=== PATIENT | female | born 1970 | race Caucasian/White ===

== ENCOUNTER → 2017-02-02 | Outpatient (CLI) | payer OTHER | LOC: EMI 10:41 | DX: M50.90 Cervical disc disorder, unspecified, unspecified cervical region (principal); M54.2 Cervicalgia; G89.4 Chronic pain syndrome; M50.222 Other cervical disc displacement at C5-C6 level | CPT/HCPCS: 72156; A9577; J7050 ==

== ENCOUNTER → 2017-02-02 | Outpatient (CLI) | payer OTHER | LOC: LAB 10:05 | DX: M35.9 Systemic involvement of connective tissue, unspecified (principal); Z84.1 Family history of disorders of kidney and ureter; Z87.442 Personal history of urinary calculi | CPT/HCPCS: 36415; 82565; 84520 ==

== ENCOUNTER → 2021-03-04 | Outpatient (CLI) | payer OTHER | LOC: EMI 13:38 | DX: G35 Multiple sclerosis (principal) | CPT/HCPCS: 70553; A9577 ==

== ENCOUNTER → 2021-09-16 | Outpatient (CLI) | payer OTHER | LOC: EMI 11:26 | DX: G35 Multiple sclerosis (principal); R90.82 White matter disease, unspecified | CPT/HCPCS: 70553; A9577 ==

== ENCOUNTER → 2021-10-29 | Outpatient (CLI) | payer OTHER ==
[2021-10-29 10:11] LABS: GLUCOSE,CSF 56 mg/dL (50-80); TOTAL PROTEIN,CSF 40 mg/dL (20-45)
[2021-10-29 10:51] LABS: WBC (AUTOMATED 1 10^3 (0-5)
[2021-10-29 10:52] LABS: WBC (AUTOMATED 1 10^3 (0-5)
[2021-11-01 14:13] LABS: CSF IGG INDEX 0.4 (0.0-0.7); IMMUNOGLOBULIN G, QN, SERUM 966 mg/dL (586-1602)
[2021-11-01 17:13] LABS: MYELIN BASIC PROTEIN, CSF 6.7 ng/mL (0.0-3.7)
== END ==
LOC: OR 07:30 → RAD 08:22
PROVIDERS: Nurse Practitioner Family
DX: G35 Multiple sclerosis (principal)
CPT/HCPCS: 82040; 82784; 82945; 83873; 83916; 84157; 87015; 87070; 87116; 87205; 87210; 89051

== ENCOUNTER → 2021-12-10 | Outpatient (CLI) | payer OTHER | LOC: OPSV 14:06 | DX: G35 Multiple sclerosis (principal) | CPT/HCPCS: 96365; J2930; J7030 ==

== ENCOUNTER → 2021-12-11 | Outpatient (CLI) | payer OTHER | LOC: OPSV 09:00 | DX: G35 Multiple sclerosis (principal) | CPT/HCPCS: 96365; J2930; J7030 ==

== ENCOUNTER → 2021-12-12 | Outpatient (CLI) | payer OTHER | LOC: OPSV 11:03 | DX: G35 Multiple sclerosis (principal) | CPT/HCPCS: 96365; J2930; J7030 ==

== ENCOUNTER → 2021-12-27 | Outpatient (CLI) | payer OTHER | LOC: EMI 09:13 | DX: G35 Multiple sclerosis (principal); M50.922 Unspecified cervical disc disorder at C5-C6 level; M51.24 Other intervertebral disc displacement, thoracic region | CPT/HCPCS: 72156; 72157; A9577 ==